=== PATIENT | male | born 1985 | race Caucasian/White ===

== ENCOUNTER 2022-03-29 13:25 | Emergency (ER) | payer OTHER, SELFPAY ==
[2022-03-29 14:07] VITALS: BP 113/70; PULSE 75; RESP 18; TEMP 36.8; O2SAT 99; BMI 31.1
[2022-03-29 16:05] LABS: MANUAL DIFF FLAG NO
[2022-03-29 16:07] LABS: Basophils Absolute Auto 0.1 X10*3/uL (0.0-0.2); Basophils Percent Auto 0.4 % (0-2); Eosinophils Absolute Auto 0.2 X10*3/uL (0.0-0.4); Eosinophils Percent Auto 2.2 % (0-4); Hematocrit 43.9 % (42.0-52.0); Hemoglobin 14.7 g/dl (14.0-18.0); Imm Gran Abs Auto 0.04 X10*3/uL (0.00-0.03); Imm Gran Pct Auto 0.4 % (0.0-0.4); Lymphocytes Absolute Auto 2.9 X10*3/uL (1.2-4.9); Lymphocytes Percent Auto 26.3 % (20-40); Mean Corpuscular HGB Conc 33.5 g/dl (31.0-36.0); Mean Corpuscular Hemoglobin 30.2 pg (27.0-33.0); Mean Corpuscular Volume 90.1 fL (80.0-98.0); Mean Platelet Volume 8.9 fL (9.4-12.4); Monocytes Absolute Auto 0.7 X10*3/uL (0.1-1.2); Monocytes Percent Auto 6.3 % (2-11); Neutrophils Absolute Auto 7.2 x10*3/uL (2.0-8.3); Neutrophils Percent Auto 64.4 % (45-73); Platelet Count 291 X10*3/uL (160-400); Red Blood Count 4.87 X10*6/uL (4.60-5.80); Red Cell Distribution Width 12.5 % (11.0-16.0); White Blood Count 11.2 X10*3/uL (4.8-10.8)
[2022-03-29 16:22] LABS: Alanine Aminotransferase 24 U/L (0-40); Albumin Level 4.4 g/dL (3.5-5.0); Alkaline Phosphatase 80 U/L (39-117); Anion Gap 14 (12-20); Aspartate Amino Transferase 16 U/L (5-37); Bilirubin Total 0.6 mg/dL (0.0-1.0); Blood Urea Nitrogen 15 mg/dL (9-16); Calcium 9.4 mg/dL (8.4-10.2); Carbon Dioxide 25 mmol/L (22-29); Chloride 105 mmol/L (96-108); Creatinine Clr Calc Pharmacy 103.1; Estimated Glomerular Filt Rate > 60; Glucose Random 87 mg/dL (60-115); Potassium 4.4 mmol/L (3.3-5.1); Sodium 140 mmol/L (135-145); Total Protein 7.5 g/dL (6.5-8.0)
[2022-03-29 17:46] VITALS: BP 130/83; PULSE 77; RESP 16; TEMP 36.2; O2SAT 100
== END 2022-03-29 20:45 | disposition left against medical advice (07) ==
PROVIDERS: Emergency Provider Emergency Medicine; PCP Family Medicine
DX: R10.32 Left lower quadrant pain (principal); Z79.899 Other long term (current) drug therapy
CPT/HCPCS: 36415; 80053; 85025; 99283

== ENCOUNTER 2024-03-14 10:57 | Outpatient (AMB) | payer OTHER, SELFPAY ==
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
== END 2024-03-14 11:45 | disposition home or self-care (01) ==
PROVIDERS: PCP Family Medicine; Referring Provider Physical Medicine & Rehabilitation; Visit Provider Neurological Surgery
DX: M47.22 Other spondylosis with radiculopathy, cervical region (principal)
CPT/HCPCS: 99204

== ENCOUNTER → 2024-03-14 10:57 | Outpatient (BNVA) | payer OTHER, SELFPAY | PROVIDERS: PCP Family Medicine; Visit Provider Neurological Surgery ==

== ENCOUNTER 2024-11-26 15:00 | Outpatient (AMB) | payer OTHER, SELFPAY ==
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
--- OUTSIDE RECORDS SUMMARY | 2024-11-26 17:30 | XMS_ITS | Clinical Summary ---
Author Organization [facility] Address [address] [place] [address] Care Team Providers Care Oracle Programmer Analyst Name Role Phone Ed Moran MD Primary Care Provider [phone] Allergies No known active allergies Medications No known medications Active Problems No known active problems Social History Tobacco Use Types Packs/Day Years Used Date Smoking Tobacco: Never Assessed Sex and Gender Information Value Date Recorded Sex Assigned at Not on file Gender Identity Not on file Sexual Orientation Not on file Last Filed Vital Signs Vital Sign Reading Time Taken Comments Blood Pressure 137/86 05/24/2021 10:11 AM EDT Pulse 86 05/24/2021 10:11 AM EDT Temperature 36.4 ??C (97.6 ??F) 05/24/2021 10:11 AM E DT Respiratory Rate - - Oxygen Saturation 98% 05/24/2021 10:11 AM EDT Inhaled Oxygen Concentration - - Weight 102 kg (225 lb) 02/01/2021 1:58 PM EDT Height 177.8 cm (5' 10 ) 02/01/2021 1:58 PM EDT Body Mass Index 32.28 02/01/2021 1:58 PM EDT Plan of Treatment Health Maintenance Due Date Last Done Comments Hepatitis C Virus Screening 1986 HIV Screening 1999 DTaP/Tdap/Td Vaccines (1 - Tdap) 2005 Hepatitis B Vaccines (1 of 3 - 19+ 3-dose series) 2005 Influenza Vaccine 06/05/2024 COVID-19 Vaccine ( - 2023-2 5 season) 2024 HPV Vaccines Aged Out No longer eligi ble based on patient's age to complete this topic Pneumococcal Vaccine: Pediat curt (0-5 Years) and At-Risk Patients (6 to 49 Years) Aged Out No longer eligible b ased on patient's age to complete this topic Care Teams Oracle Programmer Analyst Relationship Specialty Start Date End Date Ed Moran MD [address] [place] [address] PCP - General Family Medicine 01/26/21
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
--- OUTSIDE RECORDS SUMMARY | 2024-11-26 17:31 | XMS_ITS | Clinical Summary ---
[facility] Address [address] [place] [address] Care Team Providers Care Strategic Account Director Name Role Phone Unavailable Primary Care Provider Unavailabl e Social History Tobacco Use Types Packs/Day Years Used Date Smoking Tobacco: Never Smokeless Tobacco: Never Sex and Gender Information Value Date Recorded Sex Assigned at Not on file Gender Identity Not on file Sexual Orientation Not on file Obstetrics History Plan of Treatment Health Maintenance Due Date Last Done Comments DTaP,Tdap,and Td Vaccines (1 - Tdap) 2005 Hepatitis B Vaccines (1 of 3 - 19+ 3-dose series) 2005 Cholesterol Screening (Lipid Panel) 10/07/2022 Depression Screening 10/07/2022 HIV Screening 10/07/2022 Hepatitis C Screening 10/07/2022 Social Influencers of Health Screening 10/07/2022 COVID-19 Vaccine (2023-2 5 season) 2024 Influenza Vaccine (#1) 2024 HIB Vaccines Aged Out No longer eligi ble based on patient's age to complete this topic HPV Vaccines Aged Out No longer eligi ble based on patient's age to complete this topic Hepatitis A Vaccines Aged Out No long er eligible based on patient's age to complete this topic IPV Vaccines Aged Out No longer eligi ble based on patient's age to complete this topic MMR Vaccines Aged Out No longer eligi ble based on patient's age to complete this topic Meningococcal ACWY Vaccine Aged Out N o longer eligible based on patient's age to complete this topic Pneumococcal Vaccine: Pediat rics (0 to 5 Years) and At-Risk Patients (6 to 64 Years) Aged Out No longer eligible b ased on patient's age to complete this topic RSV Immunization Patients Un alexander 20 months Aged Out No longer eligible b ased on patient's age to complete this topic Varicella Vaccines Aged Out No longer eligible based on patient's age to complete this topic
== END 2024-11-26 15:41 | disposition home or self-care (01) ==
PROVIDERS: PCP Family Medicine; Visit Provider Neurological Surgery
DX: M47.22 Other spondylosis with radiculopathy, cervical region (principal)
CPT/HCPCS: 99214

== ENCOUNTER 2024-12-29 08:33 | Outpatient (AMB) | payer OTHER, SELFPAY ==
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
[2024-12-29 08:53] VITALS: BMI 29.3
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
--- OUTSIDE RECORDS SUMMARY | 2024-12-29 08:57 | XMS_ITS | Clinical Summary ---
[facility] Address [address] [place] [address] Care Team Providers Care Agriculture Science Teacher Name Role Phone Unavailable Primary Care Provider Unavailabl e Social History Tobacco Use Types Packs/Day Years Used Date Smoking Tobacco: Never Smokeless Tobacco: Never Sex and Gender Information Value Date Recorded Sex Assigned at Not on file Legal Sex Male 8:38 PM EST Gender Identity Not on file Sexual Orientation [...] patient's age to complete this topic Meningococcal B Vacine Aged Out No lo nger eligible based on patient's age to complete [...]
--- OUTSIDE RECORDS SUMMARY | 2024-12-29 08:57 | XMS_ITS | Clinical Summary ---
Author Organization [facility] Address [address] [place] [address] Care Team Providers Care Business Systems Analyst Name Role Phone Ed Moran MD Primary Care Provider [phone] Allergies No known active allergies Medications No [...] age to complete this topic Care Teams Business Systems Analyst Relationship Specialty Start Date End Date Ed Moran MD [address] [place] [address] PCP - General Family Medicine 01/26/21
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
== END 2024-12-29 10:07 | disposition home or self-care (01) ==
PROVIDERS: Visit Provider Physician Assistant
DX: M47.22 Other spondylosis with radiculopathy, cervical region (principal); M75.41 Impingement syndrome of right shoulder
CPT/HCPCS: 20610; 99203

== ENCOUNTER → 2024-12-29 08:42 | Outpatient (BNV) | payer OTHER, SELFPAY | PROVIDERS: Visit Provider Radiology Diagnostic Radiology | DX: M25.511 Pain in right shoulder (principal) | CPT/HCPCS: 73030 ==

== ENCOUNTER 2024-12-29 12:53 | Outpatient (REF) | payer OTHER, SELFPAY ==
--- NOTE | ~2024-12-29 | XR_ITS ---
EXAMINATION: XR SHOULDER, RIGHT CLINICAL INFORMATION: M25.519 - Pain in unspecified shoulder COMPARISON: None available. TECHNIQUE: AP external rotation, Grashey, scapular Y, and axillary views of the right shoulder. FINDINGS: No acute cortical disruption or malalignment. No lytic or blastic lesions. No metallic or radiopaque foreign body. No subcutaneous emphysema. XR/XR shoulder RT min 2V IMPRESSION: Normal x-ray, right shoulder. Electronically signed by: Gregg Encinas MD 12/30/2024 10:31 AM LUIG[facility] GEE
--- OUTSIDE RECORDS SUMMARY | 2024-12-30 15:40 | XMS_ITS | Clinical Summary ---
Author Organization [facility] Address [address] [place] [address] Care Team Providers Care Field Laboratory Operator Name Role Phone Ed Moran MD Primary Care Provider [phone] Allergies No known active allergies Medications No [...] age to complete this topic Care Teams Field Laboratory Operator Relationship Specialty Start Date End Date Ed Moran MD [address] [place] [address] PCP - General Family Medicine 01/26/21
--- OUTSIDE RECORDS SUMMARY | 2024-12-30 15:40 | XMS_ITS | Clinical Summary ---
Author Organization [facility] Address [address] [place] [address] Care Team Providers Care Telephone Assembler Name Role Phone Unavailable Primary Care Provider [...]
== END 2024-12-29 12:54 | disposition home or self-care (01) ==
LOC: HO.HOSX 12:53
PROVIDERS: Visit Provider Physician Assistant
DX: M25.511 Pain in right shoulder (principal); M50.122 Cervical disc disorder at C5-C6 level with radiculopathy; M47.22 Other spondylosis with radiculopathy, cervical region; M75.41 Impingement syndrome of right shoulder
CPT/HCPCS: 20610; 73030; J1010; J2003

== ENCOUNTER → 2025-01-15 07:27 | Outpatient (BNV) | payer OTHER, SELFPAY | PROVIDERS: PCP Family Medicine; Visit Provider Radiology Diagnostic Radiology | DX: M75.41 Impingement syndrome of right shoulder (principal) | CPT/HCPCS: 73221 ==

== ENCOUNTER 2025-01-15 07:29 | Outpatient (REF) | payer OTHER, SELFPAY ==
--- NOTE | ~2025-01-15 | MR_ITS ---
CLINICAL HISTORY: M75.41 - Impingement syndrome of right shoulder MR right shoulder without gadolinium Comparison: None Findings: No acute fractures. No pathologic bone lesions. There are moderate degenerative changes of the acromioclavicular joint. There is bone marrow edema adjacent to the joint. Type II acromion without downsloping. No joint effusion. Bony productive changes related to the inferior AC joint impinge upon the musculotendinous junction of the supraspinatus tendon. There is no evidence of rotator cuff tear. The long head of biceps is intact. No tears of the glenoid labrum. IMPRESSION: 1. Moderate degenerative changes of the acromioclavicular joint with bone marrow edema adjacent to the joint. Inferiorly directed bony osteophytes impinge upon the supraspinatus tendon. No evidence of rotator cuff degeneration or tear. This document has been electronically signed by: Alphonso Jennings MD on 01/16/2025 09:24:23
--- OUTSIDE RECORDS SUMMARY | 2025-01-15 07:32 | XMS_ITS | Clinical Summary ---
Author Organization [facility] Address [address] [place] [address] Care Team Providers Care Dinkey Dispatcher Name Role Phone Unavailable Primary Care Provider [...]
--- OUTSIDE RECORDS SUMMARY | 2025-01-15 07:33 | XMS_ITS | Clinical Summary ---
Author Organization [facility] Address [address] [place] [address] Care Team Providers Care Manager Sourcing Name Role Phone Ed Moran MD Primary Care Provider [phone] Allergies No known active allergies Medications No [...] age to complete this topic Care Teams Manager Sourcing Relationship Specialty Start Date End Date Ed Moran MD [address] [place] [address] PCP - General Family Medicine 01/26/21
== END 2025-01-15 07:30 | disposition home or self-care (01) ==
LOC: HO.MRI 07:29
PROVIDERS: PCP Family Medicine; Visit Provider Physician Assistant
DX: M75.41 Impingement syndrome of right shoulder (principal)
CPT/HCPCS: 73221

== ENCOUNTER 2025-02-03 09:33 | Outpatient (AMB) | payer OTHER, SELFPAY ==
--- NOTE | 2025-02-03 09:33 | MHC.OFFVIS ---
Vital Signs 02/03/25 09:35 Height 5 ft 10 in Weight 204 lb BMI 29.3 Handedness Right Intake Visit Reasons: Tele - right shoulder MRI review Intake Note: Jose Juan is a 39 year old right hand dominant male who presents today via telephone for a MRI review of his right shoulder. Patient reports he is feeling worse since the last time he saw us. IMPRESSION: 1. Moderate degenerative changes of the acromioclavicular joint with bone marrow edema adjacent to the joint. Inferiorly directed bony osteophytes impinge upon the supraspinatus tendon. No evidence of rotator cuff degeneration or tear. Allergies No Known Allergies [No Known Allergies*] Allergy (Verified 02/03/25 09:35) HPI HPI Tele - right shoulder MRI review: Details: Mr. Ramirez is a 39-year-old male presenting via telehealth appointment for right shoulder MRI review. Patient is only able to participate in video call messaging. Patient reports that the cortisone injection that was administered at the last visit gave him a few days of relief but then his pain came back. He reported to the medical numerical control operator that his pain is feeling worse than when he was last seen. He is tentatively scheduled for C-spine surgery with Dr. Emerson on 03/18/2025. 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 Review of Systems Const All systems reviewed & are unremarkable except as noted in HPI and below Physical Exam Vital Signs: BMI result Body Mass Index 29.3 Extrem Other: Deferred due to telehealth Telehealth Telehealth Telehealth Platform: Telephone Location of provider rendering services: practice address Location of patient: address on file Patient Identification confirmed using: Name, : Yes Telehealth method: voice only Patient verbally consented to treatment: Yes Patient verbally consented to billing insurance company: Yes Patient informed of any privacy concerns related to visit: Yes Minutes spent on Phone/Video with Pt.: 10 Assessment & Plan Assessment & Plan (1) Cervical radiculopathy due to degenerative joint disease of spine: Code(s): M47.22 - Other spondylosis with radiculopathy, cervical region Category: Medical (2) Impingement syndrome of right shoulder: Code(s): M75.41 - Impingement syndrome of right shoulder Category: Medical Plan I discussed the MRI findings with Mr. Ramirez which include moderate degenerative changes of the AC joint with bone marrow edema adjacent to the joint. Inferiorly directed bony osteophytes impinge upon the supraspinatus tendon there is no evidence of rotator cuff degeneration or tear. The last cortisone injection only alleviated some of the pain for few days and then returned. At this time the patient does have impingement syndrome however, at this time the cervical radiculopathy seems to be the more concerning issue. He will follow-up with Dr. Emerson for further management. Follow up with Orthopedics as p.r.n., sooner if needed. Coding Level of Care Code Tele Est Pt Level 3 (58908) Diagnoses Cervical radiculopathy due to degenerative joint disease of spine M47.22 Impingement syndrome of right shoulder M75.41
[2025-02-03 09:35] VITALS: BMI 29.3
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
--- OUTSIDE RECORDS SUMMARY | 2025-02-03 10:49 | XMS_ITS | Clinical Summary ---
Author Organization Formerly [facility] Address [address] [place] [address] Care Team Providers Care Court Assistant Name Role Phone Ed Moran MD Primary Care Provider Allergies No known active allergies Medications No [...] age to complete this topic Care Teams Court Assistant Relationship Specialty Start Date End Date Ed Moran MD [address] [place] [address] PCP - General Family Medicine 01/26/21
--- OUTSIDE RECORDS SUMMARY | 2025-02-03 10:49 | XMS_ITS | Clinical Summary ---
Author Organization [facility] Address [address] [place] [address] Care Team Providers Care Stage Hand Name Role Phone Unavailable Primary Care Provider [...]
== END 2025-02-03 09:39 | disposition home or self-care (01) ==
LOC: HO.HOS 09:33
PROVIDERS: PCP Family Medicine; Visit Provider Physician Assistant
DX: M47.22 Other spondylosis with radiculopathy, cervical region (principal); M75.41 Impingement syndrome of right shoulder
CPT/HCPCS: 98012

== ENCOUNTER 2025-04-08 11:16 | Outpatient (AMB) | payer OTHER, SELFPAY ==
--- NOTE | 2025-04-08 11:17 | A.SPINEOV_ITS ---
Intake Visit Reasons: Surgical ?'s prior to r/s Intake Note: Mr. Ramirez is here today with surgical ?'s prior to r/s surgery. Procurement Director Required: No Allergies No Known Allergies [No Known Allergies*] Allergy (Verified 02/03/25 09:35) Assessment & Plan Assessment & Plan (1) Cervical radiculopathy due to degenerative joint disease of spine: Code(s): M47.22 - Other spondylosis with radiculopathy, cervical region Category: Medical Plan Today I saw for follow-up Jose Juan Ramirez. He was scheduled to undergo total disc arthropathy C5-6 in March but due to the passing of his mother this is postpone. He also saw the orthopedic surgeon in the meantime we thought that the symptoms were most likely not related to his right shoulder. He comes in with a few additional questions that were answered satisfactorily. He is planning on ever the surgery in September. He will call my office 6 weeks before the scheduled. I spent 25 minutes in his consult answering questions. Jordi Emerson MD, PhD Spine Fellowship Trained Neurosurgeon Director, [facility] Coding Level of Care Code Est Pt Level 3 (84417) Diagnoses Cervical radiculopathy due to degenerative joint disease of spine M47.22
--- OUTSIDE RECORDS SUMMARY | 2025-04-08 12:13 | XMS_ITS | Data Portability ---
Author Organization [facility], [facility] Address [address] [place] [address] Care Team Providers Care Batch Analyst Name Role Phone HILDA JAY Oreman ELYSE BRIGGS Picking Belt Operator SUDHA LEIVA Primary Care Provider [phone] JEFFREY PERKINS Pacs Administrator [phone] Assessment Encounter Date Assessment Date Assessment LastModified by Organization Details LastModified Time 03/04/2025 03/04/2025 Assessment: R RCRPS Improved ease of mobility noted initially after manual techniques performed. Encouraged patient to include gentle motion within comfortable limits to facilitate improved duration of mobility improvement. Schneider deficits/impairmen ts: shoulder AROM, PROM, strength Functional limitations: pain [...] Treatment to include the following as indicated: 99401 Therapeutic Exercise, 36468 Neuromuscular Re-education, 11647 Gait Training, 58580 Manual Therapy, 78296 Therapeutic Activity, and 82010 Self-care and ADL Training Next visit: continue with SUSANNE Not available 03/04/2025 11:29:55 03/11/2025 03/11/2025 Assessment: R RCRPS Continued encouragement to include gentle ROM within comfortable limits after manual techniques today. Improved ease of mobility and somewhat decreased pain following performance. Schneider deficits/impairmen ts: shoulder AROM, PROM, strength Functional limitations: pain [...] Treatment to include the following as indicated: 45113 Therapeutic Exercise, 73037 Neuromuscular Re-education, 05995 Gait Training, 89009 Manual Therapy, 78345 Therapeutic Activity, and 35825 Self-care and ADL Training Next visit: continue with SUSANNE [email or web address] Not available 03/11/2025 11:05:54 03/25/2025 03/25/2025 Assessment: R RCRPS Improved ease of mobility following manual techniques. Emphasized mobilization of posterior scapulothoracic musculature and joint mobilization at T4-T7 levels. Schneider deficits/impairmen ts: shoulder AROM, PROM, strength Functional limitations: pain [...] Treatment to include the following as indicated: 30901 Therapeutic Exercise, 62035 Neuromuscular Re-education, 53785 Gait Training, 70950 Manual Therapy, 25848 Therapeutic Activity, and 74504 Self-care and ADL Training Next visit: continue with SUSANNE [email or web address] Not available 03/25/2025 12:39:10 Plan of Treatment Reminders Order Date Submit Date Provider Last Modified By Organization Details Last Modified Time Details Appointments Follow Up, 2024 03:30P M EHSAN LARES DPT Not available Not available Not available Follow Up, 2024 11:30A M EHSAN LARES DPT Not available Not available Not available LAB Follow-Up 2025 03:15P M [facility] Lab Not available Not available Not available Wellness Visit 30 2025 09:15A M Sudha Leiva MD Not available Not available Not available Lab None recorded. Referral neurologi st referral - pt has had intermitt ent paresthes ias on his face, left side, was dx as migraine, having intermitt ent sx, mild, but no further YOON, never had nausea, r/o MS 2024 025 [email or web address] Lamont Rowe MD, [address] , [place], [address], 03/09/2025 12:43:37 Procedures None recorded. Surgeries None recorded. Imaging None recorded. Medication Orders tadalafil 20 mg tablet 2024 025 ASIF G[employer], [address] [place] [address], [address], 04/06/2025 09:39:10 Patient TargetsNo targets recorded. Patient Instructions Encounter Date Encounter Id Patient Instructions Last Modified By Organization Details Last Modified Time 03/04/2025 [id number] Patient instruct ed to inform attending physical therapist of any apprehension, pain, discomfort, or change in symptoms throughout the course of treatment. Patient verbalized understanding and agreed to comply. Not available 03/04/2025 10:36:17 03/11/2025 [id number] Patient instruct ed to inform attending physical therapist of any apprehension, pain, discomfort, or change in symptoms throughout the course of treatment. Patient verbalized understanding and agreed to comply. [email or web address] Not available 03/11/2025 10:34:17 03/25/2025 [id number] Patient instruct ed to inform attending physical therapist of any apprehension, pain, discomfort, or change in symptoms throughout the course of treatment. Patient verbalized understanding and agreed to comply. [email or web address] Not available 03/25/2025 11:27:58 04/06/2025 [id number] sciatica: care instructions [email or web address] Not available 04/06/2025 09:57:12 take 1000 iu vitamin d daily, or average 5,000-10,000 once a week [email or web address] Not available 04/06/2025 09:42:30 After a discussi on of treatment options, which included consideration of best practices and patient preferences, the following treatment plan and objectives were adopted: as above. [email or web address] Not available 04/06/2025 09:42:33 Reason for Referral Neurologist Referral for Fac ial paresthesia pt has had intermittent paresthesias on his face, left side, was dx as migraine, having intermittent sx, mild, but no further YOON, never had nausea, r/o MS Referring Physician: Sudha Leiva, Family Medicine, Encounter Date: 03/06/2025 Results Created Date Observation Date Name Description Value Unit Range Abnormal Flag Note LastModifiedBy Organization Detail LastModifiedTime 03/02/2003/02/2025 BASIC METAB OLIC PANEL glucose 83 mg/dL 70-100 Not Available [address], [address], 03/02/2025 14:39:40 03/02/20 25 03/02/2025 BASIC METAB OLIC PANEL BUN 26 mg/dL 7-18 high Not Available [address], [address], 03/02/2025 14:39:40 03/02/20 25 03/02/2025 BASIC METAB OLIC PANEL creatinine 0.8 mg/dL 0.8-1. 3 Not Available [address], [address], 03/02/2025 14:39:40 03/02/20 25 03/02/2025 BASIC METAB OLIC PANEL B/C 32.5 ratio Not Available [address], [address], 03/02/2025 14:39:40 03/02/20 25 03/02/2025 BASIC METAB OLIC PANEL GFR >=60ML /MIN mL/mi n normal >=60m L/min - Valerie l or midly reduc ed <60mL /min- Decre ased kidne y funct ion <15mL /min - Kidne y failu re [facility] calcu lates estim ated Glome rular Filtr ation Rate (eGFR ) using the Chron ic Kidne y Disea se Epide miolo gy Colla borat ion (CKD- EPI) Equat ion (Vitor r et. al 2020) as recom vera d by the Natio nal Kidne y Found ation . eGFR is based on age, serum creat inine , and sex. CKD-E PI does not calcu late eGFR by race, does not apply to child gregory (age <18 years ), and shoul d not be used in pregn bernard. Not Available [address], [address], 03/02/2025 14:39:40 03/02/20 25 03/02/2025 BASIC METAB OLIC PANEL sodium 142 mmol/ L 136-14 5 Not Available [address], [address], 03/02/2025 14:39:40 03/02/20 25 03/02/2025 BASIC METAB OLIC PANEL potassium 4.8 mmol/ L 3.5-5. 1 Not Available [address], [address], 03/02/2025 14:39:40 03/02/20 25 03/02/2025 BASIC METAB OLIC PANEL chloride 107 mmol/ L 96-107 Not Available [address], [address], 03/02/2025 14:39:40 03/02/20 25 03/02/2025 BASIC METAB OLIC PANEL anion gap 9.9 5.0-15 .0 Not Available [address], [address], 03/02/2025 14:39:40 03/02/20 25 03/02/2025 BASIC METAB OLIC PANEL CO2 25 mmol/ L 21-32 Not Available [address], [address], 03/02/2025 14:39:40 03/02/20 25 03/02/2025 BASIC METAB OLIC PANEL calcium 8.8 mg/dL 8.5-10 .3 Not Available [address], [address], 03/02/2025 14:39:40 03/02/20 25 03/02/2025 LIPID PANEL cholesterol 149 mg/dL <200 mg/dl Staci able 200-2 39 mg/dl Borde rline High >240 mg/dl High Not Available [address], [address], 03/02/2025 14:39:42 03/02/20 25 03/02/2025 LIPID PANEL triglyceride s 37 mg/dL <150 mg/dL Valerie l 150-1 99 mg/dL Borde rline High 200-4 99 mg/dL High >500 mg/dL Very High Not Available [address], [address], 03/02/2025 14:39:42 03/02/20 25 03/02/2025 LIPID PANEL direct HDL 73 mg/dL <40 mg/dl - Major Risk for CHD >60 mg/dl - Negat janneth Risk for CHD Not Available [address], [address], 03/02/2025 14:39:42 03/02/20 25 03/02/2025 URIC ACID uric acid 6.1 mg/dL 3.5-7. 2 Not Available [address], [address], 03/02/2025 14:39:43 03/02/2003/02/2025 DIREC T LDL direct LDL 61 mg/dL RISK CATEG ORY LDL GOAL _ CHD or CHD Risk Equiv alent s <100 mg/dl (10-y ear risk >20%) 2+ Risk Facto rs <130 mg/dl (10-y ear risk <= 20%) 0-1 Risk Facto r? <160 mg/dl ? Almos t all peopl e with 0-1 risk facto r have a 10 year risk <10%, thus 10 year risk asses ment in peopl e with 0-1 risk facto r is not neces carmen. Not Available [address], [address], 03/02/2025 14:39:45 03/02/20 25 03/02/2025 HGB A1C hemoglobin A1C 5.4 % 4.8-6. 0 Goal: <7% in Patie nts with Diabe storm An A1c betwe en 5.7-6 .4% is ident ified as pre-d iabet es and sugge sts risk for progr essio n to diabe storm Two a1c value s of 6.5% or highe r is consi stent with a diagn osis of diabe storm but may need furth er confi rmati on Not Available [address], [address], 03/02/2025 16:08:25 03/02/20 25 03/02/2025 HGB A1C estimated average glucose 108.3 mg/dL Not Available [address], [address], 03/02/2025 16:08:25 02/20/20 25 02/17/2025 CT, head, w/o contr ast No observ ation record ed. [address] In[address] [place], [address], 02/19/2025 11:03:36 03/23/20 25 03/18/2025 MRI brain (MS) with and witho ut contr ast MRI BRAIN (MS) WITH AND WITHOU T CONTRA ST Referr ing clinic sharonda's provid ed indica tion for this examin ation in Epic: Outsid e Radiol ogy Order; facial parest hesia TECHNI QUE: MRI BRAIN (MS) WITH AND WITHOU T CONTRA ST COMPAR MANNY: None availa ble. FINDIN GS: Brain Parenc hyma: No eviden ce of acute infarc t, mass lesion , or hemorr darrion. No abnorm al parenc hymal enhanc ement. Ventri cular System and Extra- Axial Spaces : No eviden ce of midlin e shift or hydroc ephalu s. Extrac ranial Struct ures: Arteri al flow voids in the skull base are presen t. Orbits are unrema rkable . Trace scatte red mucosa l thicke meagan is seen throug hout the parana martin sinuse s. Mucus retent ion cyst is seen in the left spheno id sinus. The mastoi ds are clear. IMPRES ZARA: No eviden ce of acute infarc tion, hemorr darrion, intrac ranial mass, or hydroc ephalu s. Electr onical ly Signed by: Candice Brady on 025 10:29 AM Interp reted by: Candice Brady MD Signed by: Candice Brady MD 5 Final result Left facial parest hesias x 3 weeks. MRI MS w/ and w/o. Brain/ brains tem, r/o MS JENNIF ER DEPIER O JENNIF ER DEPIER O JENNIF ER DEPIER O [facility] [address] [place] [address], [address], 03/24/2025 13:49:52 03/23/20 25 03/18/2025 MRI, head, w/wo contr ast No observ ation record ed. [address], [address], 03/24/2025 13:49:52 Result Notes None recorded. 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 Procedures Surgical History Date Name Laterality Status Provider Name and Address Organization Details Recorded Time 5 14432: Therapeutic Exercise completed EHSAN LARES DPT [address] [place] [address], [phone], [facility] 03/25/2025 12:38:06 5 [address]: Manual Therapy completed EHSAN LARES DPT [address] [place] [address], [address], [facility] 03/25/2025 12:38:02 5 Treatment and Advice completed EHSAN LARES DPT [address] [place] [address], [address], [facility] 03/25/2025 12:37:51 5 74107: Manual Therapy completed EHSAN LARES DPT [address] [place] [address], [address], [facility] 03/11/2025 10:34:17 5 Treatment and Advice completed EHSAN LARES DPT [address] [place] [address], [address], [facility] 03/11/2025 10:34:17 5 [address]2658: Manual Therapy completed EHSAN LARES DPT [address] [place] [address], [address], [facility] 03/04/2025 11:28:19 04/30/202 5 Treatment and Advice completed EHSAN ARNAUD, DPT [address] [place], [address], [facility] 03/04/2025 11:28:40 5 95130: Manual Therapy completed EHSANHO LARES, DPT [address] [place], [address], [facility] 02/25/2025 15:28:33 Treatment and Advice completed EHSAN ARNAUD, DPT [address] [place], [address], [facility] 02/25/2025 15:31:03 5 17605: Therapeutic Exercise completed EHSAN LARES, DPT [address] [place], [address], [facility] 02/12/2025 16:12:15 Treatment and Advice completed EHSANMARTA LARES, DPT [address] [place], [address], [facility] 02/12/2025 16:10:43 5 43529: Therapeutic Exercise completed EHSAN LARES, DPT [address] [place], [address], [facility] 02/05/2025 16:17:20 15728: Manual Therapy completed EHSAN LARES, DPT [address] [place], [address], [facility] 02/05/2025 16:17:34 Treatment and Advice completed EHSAN ARNAUD, DPT [address] [place], [address], [facility] 02/05/2025 16:17:17 5 51840: Therapeutic Exercise completed EHSAN ARNAUD, DPT [address] [place], [address], [facility] 01/13/2025 16:37:01 Treatment and Advice completed EHSAN ARNAUD, DPT [address] [place], [address], [facility] 01/13/2025 16:59:57 12567: Therapeutic Exercise completed EHSAN LARES DPT [address] [place], [address], [facility] 01/06/2025 17:18:19 Treatment and Advice completed EHSAN LARES DPT [address] [place], [address], [facility] 01/06/2025 17:33:44 5 33969: Therapeutic Exercise completed VICENTE DONALD PT, DPT [address] [place], [address], [facility] 12/19/2024 17:25:37 52080: Manual Therapy completed VICENTE DONALD PT, DPT [address] [place], [address], [facility] 12/19/2024 17:00:39 Treatment and Advice completed VICENTE DONALD PT, DPT [address] [place], [address], [facility] 12/19/2024 17:26:13 08790: Therapeutic Exercise completed VICENTE DONALD PT, DPT [address] [place], [address], [facility] 12/12/2024 17:04:40 5 63012: Manual Therapy completed VICENTE DONALD PT, DPT [address] [place], [address], [facility] 12/12/2024 16:35:17 Treatment and Advice completed VICENTE DONALD PT, DPT [address] [place], [address], [facility] 12/12/2024 17:02:55 5 17319: Therapeutic Exercise completed VICENTE DONALD PT, DPT [address] [place], [address], [facility] 12/01/2024 10:31:44 5 20848: Manual Therapy completed VICENTE DONALD, PT, DPT [address] [place], [address], [facility] 12/01/2024 10:32:02 5 Treatment and Advice completed VICENTE DONALD, PT, DPT [address] [place], [address], [facility] 12/01/2024 10:31:26 5 02656: Therapeutic Exercise completed VICENTE DONALD, PT, DPT [address] [place], [address], [facility] 11/25/2024 12:59:03 5 46590: Manual Therapy completed VICENTE DONALD, PT, DPT [address] [place], [address], [facility] 11/25/2024 12:59:25 5 Treatment and Advice completed VICENTE DONALD PT, DPT [address] [place], [address], [facility] 11/24/2024 09:31:38 5 Smoking Cessation Counselling completed VICENTE DONALD PT, DPT [address] [place], [address], [facility] 11/14/2024 09:51:36 5 Physical Activity Counselling completed VICENTE DONALD PT, DPT [address] [place], [address], [facility] 11/14/2024 09:51:36 5 [address]225: PT Eval Low Complexity completed VICENTE DONALD, PT, DPT [address] [place], [address], [facility] 11/14/2024 09:51:36 5 Treatment and Advice completed VICENTE DONALD, PT, DPT [address] [place], [address], [facility] 11/17/2024 14:54:20 Imaging Results None recorded. Procedure Notes None [...] oral route as directed for 30 days. 2024 active Not Available Not Available Not Avai lable amoxicill in 500 mg capsule Take 2 [...] Not Available gabapenti n 300 mg capsule Take 1 capsule 3 times a day by oral route. 2024 active Not Available Not Available Not Avai lable sertralin e 25 mg tablet TK 1 [...] mg tablet TK 1 T PO NEEDED 2024 active Not Available Not Available Not Avai lable Fluvirin 8518-0210 45 mcg (15 mcg x 3)/0.5 mL [...] mass index (BMI) Body weight Heart rate Body temperature Oxygen saturation Oxygen saturation in Arterial blood by Pulse oximetry Systolic blood pressure Diastolic blood pressure Provider Name and Address Organization Details Last Updated DateTime 5 179.07 cm 30 kg/m2 32557.5 8 g 83 /min 98.6 [degF] 98 % 98 % 116 mm[Hg] 84 mm[Hg] LIUDMILA Rapp [facility] 5 11:32:42 Date Recorded Body height Body mass index (BMI) Body weight Heart rate Oxygen saturation Oxygen saturation in Arterial blood by Pulse oximetry Systolic blood pressure Diastolic blood pressure Provider Name and Address Organization Details Last Updated DateTime 5 179.71 cm 31.1 kg/m2 318917. 07 g 79 /min 99 % 99 % 114 mm[Hg] 76 mm[Hg] Carolyn Rodriguez MA [facility] 09:24:10 Social History Question Answer Notes LastModified by Organizat ion Details LastModified Time Tobacco Smoking Status Never Smoker GLEN Escobar, [facility] 02/26/2014 17:11:09 Do You Have An Advance Directive? No Information not available 03/03/2014 Which Illicit Or Recreational Drugs Have You Used? Edibles For Sleep Information not available 04/06/2025 Patient Has Health Care Proxy Signed And In Chart No Declined Forms 15 Information not available 03/03/2014 How Many Children Do You Have? 4 1 Live With Them (all His 's) Information not available 09/02/2015 What Is Your Relationship Status? Information not available 02/28/2022 How Much Tobacco Do You Smoke? No Information not available 12/16/2015 Sex: Male Functional Status Question Answer Note LastModified by Organizat ion Details LastModified Time Do you use any illicit or recreational drugs? Yes Information not available 04/06/2025 Do you or have you ever used any other forms of tobacco or nicotine? No Information not available 03/01/2023 Are you currently employed? Yes Information not available 02/28/2022 What is your occupation? [employer] Information not available 03/03/2014 Do you or have you ever used e-cigarettes or vape? Never used electronic cigarettes Information not available 09/23/2019 Mental Status None recorded. Family History Relationship Description Onset Age of this Age Resolved Age Notes LastModified by Organization Details LastModified Time Paternal Grandfather Myocardial infarction [email or web address] Not available 02/28 10:45:40 Mother Bipolar disorder [email or web address] Not available 2021 10:46:20 Mother Mixed anxiety and depressive disorder [email or web address] Not available 2021 10:46:53 Mother Osteoarthrit is [email or web address] Not available 2022 09:54:24 Mother Chronic obstructive pulmonary disease 73 [email or web address] Not available 2024 09:35:57 Unspecified Relation Mixed anxiety and depressive disorder niece [email or web address] Not available 2021 10:46:53 Notes:PGF- lung cancer . Mother with brain tumor Medical History Condition Response Anxiety Y Depression Y Chronic Back Pain Y Immunizations Vaccine Type Date Status Note Provider Nam e and Address Organization Details Recorded Time Influenza, split virus, trivalent, PF 4 completed Not Available [facility] 11/22/2019 02:19:22 Tdap 6 completed Not Available [facility] 11/22/2019 02:31:44 Influenza, split virus, quadrivalent, PF 7 completed Not Available [facility] 11/22/2019 02:25:40 influenza, unspecified formulation 5 completed Not Available [facility] 12/25/2023 09:43:24 influenza, unspecified formulation 6 completed Not Available [facility] 12/25/2023 09:43:24 Influenza, split virus, quadrivalent, PF 9 completed Not Available [facility] 11/22/2019 02:23:34 Influenza, split virus, quadrivalent, PF 9 completed Not Available [facility] 11/22/2019 02:38:00 COVID-19, mRNA, LNP-S, PF, 100 mcg/0.5mL dose or 50 mcg/0.25mL dose 1 completed Not Available [facility] 12/25/2023 09:43:23 COVID-19, mRNA, LNP-S, PF, 100 mcg/0.5mL dose or 50 mcg/0.25mL dose 1 completed Not Available [facility] 12/25/2023 09:43:23 Influenza, split virus, trivalent, PF 4 completed Lindsey Pleitez MA [facility] 07/15/2024 10:29:12 Influenza, split virus, quadrivalent, preservative 1 completed Not Available [facility] 12/25/2023 09:43:23 COVID-19, mRNA, LNP-S, PF, 100 mcg/0.5mL dose or 50 mcg/0.25mL dose 1 completed Not Available [facility] 12/25/2023 09:43:24 Influenza, split virus, quadrivalent, preservative 2 completed Not Available [facility] 12/25/2023 09:43:23 influenza, unspecified formulation 3 completed Not Available [facility] 12/25/2023 09:43:24 HPV, unspecified formulation 5 [facility] 08:32:06 HPV, unspecified formulation 5 [facility]/08/[facility] 08:02:11 Past Encounters Encounter ID Performer Location Encounter Start Date Encounter Closed Date Diagnosis/Indication Diagnosis SNOMED-CT Code Diagnosis ICD10 Code Diagnosis Note [id number] Brenton Stack MD , [facility], [address] [place] [address] 02/26/2014 16:32:49 02/27/2014 09:53:24 Acute pharyngitis 312558914 [id number] Brenton Stack MD , [facility], [address] [place] [address] 03/03/2014 10:15:46 03/03/2014 11:08:49 Adult health examination 255090360 see Risk Assessment and Lifestyle Change Counseling section above Anxiety 73085132 Otitis media 74718863 Impotence 991233955 [id number] Brenton Stack MD , [facility], [address] [place] [address] 07/02/2014 15:20:05 07/02/2014 16:13:43 Thrombosed external hemorrhoids 35234050 [id number] Brenton Stack MD , [facility], [address] [place] [address] 09/16/2014 15:10:36 09/16/2014 16:22:41 Influenza vaccine needed 6993530364 106 Heel pain 1322139 [id number] Brenton Stack MD , [facility], [address] [place] [address] 11/20/2014 14:54:38 11/20/2014 15:53:34 Heel pain 5622252 [id number] Hilda Jay DPM Podiatry, [facility] [address] [place] [address] 12/17/2014 15:15:12 12/17/2014 16:03:55 Plantar fasciitis 549971022 Congenital valgus deformity of foot 50979367 [id number] Hilda Jay DPM Podiatry, [place] [address] [place] [address] 12/22/2014 10:07:42 12/22/2014 10:47:17 Plantar fasciitis 113911646 Congenital valgus deformity of foot 67169034 [id number] Hilda Jay DPM Podiatry, [facility] [address] [place] [address] 01/26/2015 14:05:56 01/26/2015 14:28:00 Plantar fasciitis 776506847 Congenital valgus deformity of foot 60029720 [id number] Brenton Stack MD , [facility], [address] [place] [address] 04/05/2015 09:48:54 04/05/2015 10:33:31 Impotence 410872973 Adult heal th examination 175122077 see Risk Assessment and Lifestyle Change Counseling section above Obesity 901940197 Anxiety 24617222 [id number] Brenton Stack MD , [facility], [address] [place] [address] 09/02/2015 15:54:56 09/02/2015 17:03:30 Adult health examination 844324115 Z00.00 see Risk Assessment and Lifestyle Change Counseling section above Impotence 015494217 N52. 9 Anxiety 24189338 F41.9 [id number] Brenton Stack MD , [facility], [address] [place] [address] 12/16/2015 15:12:36 12/16/2015 16:45:43 Administration of diphtheria, pertussis, and tetanus vaccine 528093662 Z23 Thrombosed external hemorrhoids 70250531 K64.5 [id number] Brenton Stack MD , [facility], [address] [place] [address] 09/24/2017 09:08:45 09/24/2017 09:36:57 Active or passive immunization 578457843 Z23 Anxiety 79353307 F41.9 Impotence 124615197 N52. 9 [id number] Ed Moran MD , [facility], [address] [place] [address] 12/17/2018 08:29:54 12/17/2018 09:19:43 Impotence 364131850 N52.9 Ongoing erectile dysfunctio n with difficulty sustaining erection. Improved with Cialis. Refilled. Generalize d anxiety disorder 06194487 F41.1 Long history of TRACEE. Gradually titrating down the dose. Has been on Sertraline for 7-8 years. Initially was at 300mg, but slowly weaning down due to sexual side effects. Now at 50mg daily (for the last 2-3 months). In the middle of moving (moving from [place] to [place]). Would like to continue at this dose for a while. Obesity 275673829 E66.9 Trying lifestyle modificati on with low carbohydra te diet. Will check Lipids and Glucose. Active or passive immunization 910743262 Z23 [id number] Brenton Stack MD , [facility], [address] [place] [address] 09/23/2019 11:14:12 09/23/2019 12:31:26 Adult health examination 324438364 Z00.00 see Risk Assessment and Lifestyle Change Counseling section above Counseling 009643773 Z71 .9 Depression screening 171 088208 Z13.89 depression screening tool administer ed, entered into emr, scored and discussed, time greater than 7.5 minutes Active or passive immunization 249609572 Z23 Anxiety 93597873 F41.9 Impotence 735567049 N52. 9 [id number] Ed Moran MD , [facility], [address] [place] [address] 02/23/2021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 no YOON and the numbness comes and goeswould like to r/o MS, check MRI and make referral to neuro Chronic neck pain 940649 1742 107 M54.2 deferring surgerywan ts to be able to have more time free and on sabatical next spring semesterre ferred to P[facility] for considerat ion trigger point injections for posterior shoulder for susprected reactive myopathy [id number] EHSAN LARES DPT Physical Therapy, [facility] [address] [place] [address] 03/11/2025 10:30:30 03/11/2025 11:21:21 Cervical radiculopathy 31433173 M54.12 Neck pain 13254674 M54.2 Pain of ri ght shoulder joint 4125316870 [id number] M25.511 [id number] EHSAN LARES DPT Physical Therapy, [facility] [address] [place] [address] 03/25/2025 11:56:11 03/25/2025 12:46:57 Cervical radiculopathy 36179793 M54.12 Neck pain 69829564 M54.2 Pain of ri ght shoulder joint 7113761541 [id number] M25.511 [id number] Sudha Leiva MD , [facility], [address]ICE [address] [place] [address] 04/06/2025 09:16:58 04/06/2025 09:55:57 Adult health examination 775939577 Z00.00 Depression screening 171 931685 Z13.31 depression screening tool administer ed Screening for alcohol abuse 256367293 Z13.39 Alcohol use screening tool administer ed Primary er ectile dysfunction 760161297 N52.9 tadalafil with effect, mild YOON SElikes sent to [facility] for cost Chronic neck pain 363621 9976 107 M54.2 deferring surgery for disc replacemen tto be sure to have time to heal, navigating work scheduleta kes gabapentin and cyclobenza letty for pain mgmt Cervical radiculopathy 66948039 M54.12 see above Gout 28887709 M10.9 hx gout tx colchicine has not had flares for several yearsno flares in recent yearsuric acid 6.1not on any ppx Obesity 159911069 E66.9 normal screening lipid and i6jetzaklr ed diet for healthregu lar exercise Pain of oulder region 80551662 M25.519 ongoing issueseein g ortho next monthdoing PT Neck pain 72213704 M54.2 see notes above Bilateral sciatica 71859 44855 8276936 M54.31 M54.32 this has been more prevalent latelywill work w PTnotify us if updated referral needed Normal grief reaction 27 8601729 R45.89 mother last weeknoting sx on HLD7ehfod this is temporary with rawness of griefhas good supports and more time this summer for himselff/u if depressive sx persist and interfere with life Health Concerns Section Related Observation LastModified by Organization Detai ls LastModified Time None Recorded Concern Status LastModified by Organization Details LastModified Time None Recorded Advance Directives Directive N: Payers Encounter Date Sequence Insurance Name Policy Number Policy Fabian Covered Member ID Fabian Member ID Guarantor Name 03/04/2025 1 [facility] [place] [id number] 1 Jose Juan Ramirez [id number] Jose Juan Ramirez 03/06/2025 1 [facility] [place] [id number] 1 Jose Juan Ramirez [id number] Jose Juan Ramirez 03/11/2025 1 [facility] [place] [id number] 1 Jose Juan Ramirez [id number] Jose Juan Ramirez 03/25/2025 1 [facility] [id number] 1 Jose Juan Ramirez [id number] Jose Juan Ramirez 04/06/2025 1 [facility] [id number] 1 Jose Juan Ramirez [id number] Jose Juan Ramirez Notes Date Note Type Note Provider Name and Address Organization Details Recorded Time 03/04/2025 text/html PT Initial Eval*Reported bypatient.Prior Studies:MRI (annular bulge at C5/6 with herniation into neural foramen)PT Daily Progress NoteReported bypatient.Notes:Jose Juan reports that he noted some improved mobility for a day or two after the mobilizations last time. He Reports he has been mostly resting the shoulder on his own. He finished the steroid about 3 weeks ago, and has had some pain return, but it is still better than before the steroid dose pack. Patient Specific Functional Score:50 Percent limitation in carrying [id number] Percent limitation in sitting w/o lumbar [id number] Percent limitation in cooking/bakingPt referred to PT by PCP Dr. Leiva regarding shoulder and neck pain following recent [...] return to PLOF EHSAN LARES DPT [address] [place], [address], [facility] [place] 03/04/2025 11:30:07 03/06/2025 text/html [facility] ED F/Yhad unilateral paresthesias in his facein the ED they felt it was an stress induced complex migrainehad a little bit of a YOON that came and wenthas never had migraine beforeno nauseano YOON sincestill having some numbness coming in , worse around lips and chin and upper cheek, all on left sidedid a CT scan and blood work denies fatiguedenies visual sxdenies other numbness or weakness other than as related to his UE and neck sxhas tingling in his feet that he thinks from L5 disc bulgingdoes stretching for this routine was supposed to see his surgeon today as a f/u before his surgeryit was planned for this March and he is hoping to now delay until October he is on sabbatical next springbc down time can be anywhere from 3 weeks to 3 monthsin academia has a lot of time off but it isn't in his 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 He has been continuing to do less activity overall, and to focus on the exercises that facilitate immediate relief. Patient Specific Functional Score:50 Percent limitation in carrying [id number] Percent limitation in sitting w/o lumbar [id number] Percent limitation in cooking/bakingPt referred to PT by PCP Dr. Leiva regarding shoulder and neck pain following recent [...] return to PLOF EHSAN LARES DPT [address] [place], [address], [facility] [place] 03/11/2025 11:06:07 03/25/2025 text/html PT Initial Eval*Reported bypatient.Prior Studies:MRI (annular bulge at C5/6 with herniation into neural foramen)PT Daily Progress NoteReported bypatient.Notes:Jose Juan reports that he has been doing the most relieving exercises from his HEP consistently. He is looking for additional exercises focused on stretching/releasing his pec minor. Patient Specific Functional Score:50 Percent limitation in carrying [id number] Percent limitation in sitting w/o lumbar [id number] Percent limitation in cooking/bakingPt referred to PT by PCP Dr. Leiva regarding shoulder and neck pain following recent [...] pain, return to PLOF EHSAN LARES DPT [address] [place] [address], [address], [facility] [place] 03/25/2025 12:39:19 04/06/2025 text/html Risk Assessment and Lifestyle Change Counseling 18-50Reported bypatient.Coronary Artery Disease Risk Assesment:Family History of Coronary Artery Disease; No personal history of diabetes; No history of peripheral vascular disease, AAA, or carotid disease; No personal history of coronary artery disease Breast Cancer Risk Assessment:No family history of breast cancer; No history of breast cancer or dcis Lung Cancer Risk Assessment:Never smoked; No asbestos exposure Cognitive/Behavioral Risk Assessment:Personal history of mental illness;Family history of mental illness Safety Risk Assessment:No evidence of abuse/neglect; Do you feel safe in your current relationship?YES Diet:Counseled about appropriate portion size; Counseled about eating a diet low in trans and saturated fats and high in fiber, fruits and vegetables; Counseled about appropriate calcium intake and good dietary sources of calcium.; Counseled about the importance of maintaining a positive calcium balance and taking 1000 iu Vitamin D daily.; Discussed the value of a Mediterranean diet, and eating more fruits and vegetables Exercise counseling:Discussed the importance of daily physical activity; Discussed the importance of weight bearing exercise Safety:Counseled about protecting skin from the sun and lowering the risk of skin cancer; Counseled about avoiding excessive and unsafe alcohol intake; Counseled about use of helmets for high velocity activiities; Counseled about home safety including use of smoke detectors, CO detectors, keeping home water temperature less than 120; Counseled about use of seat belts health goals:would like to lose weight again this summerdid well last summer with thismostly eating less concerns:-still has issues with neck and shouldermore sciatic pain in the past few weeks, more in his right leg, seems to be bilateral thoughthis improves when he can relax and extend the lower spinewaiting on surgery for his neck -- timing, with work etc, going to have disc replacement this Sundayhe uses gabapentin and cyclobenzaprine for pain mgmthe is working w PT herehe is seeing ortho re shoulder next month 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, works a lothe has more time off in the summer mom last week w COPDthe decline was rapid, she was only 74feels his depressive sx are situational lives with hsbd, paulrelationship is going wellsexually active only with each othersome ED and uses tadalafil, mild YOON only SE tries to eat healthynotes stress eatingtries to eat veg every daynot a lot of fruiteats a lot of protien, maybe too mucheats nutsdoesn't eat legumesnot much grainsdrinks almond milk w calcium, some cheese finding it hard to find time to exercisebetter w summer scheduletries to walk five miles a dayneeds to go back to strength training Sudha Leiva MD [address] [place] [address], [place], [address], [facility] [place] 04/06/2025 09:58:50
== END 2025-04-08 11:26 | disposition home or self-care (01) ==
PROVIDERS: PCP Family Medicine; Visit Provider Neurological Surgery
DX: M47.22 Other spondylosis with radiculopathy, cervical region (principal)
CPT/HCPCS: 99213

== ENCOUNTER → 2025-04-08 11:16 | Outpatient (BNVA) | payer OTHER, SELFPAY | PROVIDERS: PCP Family Medicine; Visit Provider Neurological Surgery ==

== ENCOUNTER 2025-04-30 10:39 | Outpatient (AMB) | payer OTHER, SELFPAY ==
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
[2025-04-30 10:44] VITALS: BMI 29.3
--- OUTSIDE RECORDS SUMMARY | 2025-04-30 12:28 | XMS_ITS | Data Portability ---
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 Jose Juan Ramirez 11/16/2021 1 [facility] [id number] Jose Juan Ramirez [id number] Jose Juan Ramirez Notes Date Note Type Note Provider Name and Address Organization Details Recorded Time 03/11/2025 text/html PT Initial Eval*Reported bypatient.Prior Studies:MRI [...] Specific Functional Score:50 Percent limitation in carrying [id number] Percent limitation in sitting w/o lumbar duqjksa15 Percent limitation in cooking/bakingPt referred to PT by Dr. 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 He is looking for additional exercises focused on stretching/releasing his pec minor. Patient Specific Functional Score:50 Percent limitation in carrying ahawzty35 Percent limitation in sitting w/o lumbar owqcszq09 Percent limitation in cooking/bakingPt referred to PT by Dr. 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 off in the summer mom last week w COPDthe decline was rapid, she was only 74feels his depressive sx are situational lives with hsbd, acostarelationship is going wellsexually active only with each [...] back to strength training Sudha Leiva MD [address] [place] [address], [phone], [facility] 04/06/2025 09:58:50 04/16/2025 text/html PT/OT Initial EvalReported bypatient.Prior Studies:MRI (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 He was unable to keep up with his usual exercises and self management technigues as much as usual. Patient Specific Functional Score:50 Percent limitation in carrying axijzro90 Percent limitation in sitting w/o lumbar ilozsuh59 Percent limitation in cooking/bakingPt referred to PT by Dr. 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 Patient Specific Functional Score:50 Percent limitation in carrying dlggvka64 Percent limitation in sitting w/o lumbar Percent limitation in cooking/bakingPt referred to PT by Dr. Leiva regarding shoulder and neck pain [...] return to PLOF EHSAN LARES DPT [address] [place], [address], [facility] 04/23/2025 13:49:03
== END 2025-04-30 11:40 | disposition home or self-care (01) ==
LOC: HO.HOS 10:39
PROVIDERS: PCP Family Medicine; Visit Provider Orthopaedic Surgery
DX: M75.41 Impingement syndrome of right shoulder (principal)
CPT/HCPCS: 20610; 99214

== ENCOUNTER → 2025-04-30 10:39 | Outpatient (BNVA) | payer OTHER, SELFPAY | PROVIDERS: PCP Family Medicine; Visit Provider Orthopaedic Surgery | DX: Z71.2 Person consulting for explanation of examination or test findings (principal); M75.41 Impingement syndrome of right shoulder | CPT/HCPCS: 20610; J0665; J1100; J2003 ==

== ENCOUNTER 2025-08-11 06:11 | Outpatient (REF) | payer OTHER, SELFPAY ==
--- NOTE | ~2025-08-11 | FL_ITS ---
EXAMINATION: FL GUIDANCE ONLY HISTORY: M19.019 - Primary osteoarthritis, unspecified shoulder COMPARISON: Correlation is made with plain films of the right shoulder dated 12/29/2024. TECHNIQUE: Fluoroscopy time: Less than 1 minute. Cumulative Dose: 0.266 mGy. DAP: 0.64286 mGym2 Images: 1. FINDINGS: A single fluoroscopic spot film of the right shoulder demonstrates a needle in the region of the AC joint. FL/FL guidance in treatment room IMPRESSION: Fluoroscopy during procedure. Please see procedure report for additional information. Electronically signed by: Jordan Mcintyre MD 08/11/2025 09:37 AM EDT
--- OUTSIDE RECORDS SUMMARY | 2025-08-11 06:13 | XMS_ITS | Encounter Summary ---
Author Organization [facility] Address [address] [place] [address] Phone Care Team Providers Care Recruitment Advertising Manager Name Role Phone Unknown, Unknown Primary Care Provider Sudha Richards MD Primary Care Provider [phone] Sudha Kilpatrick MD Primary Care Provider + [phone] Sudha Kilpatrick MD Primary Care Provider +[phone]- [phone] Reason for Referral * MRI/CAT Scan - Closed Specialty Diagnoses / Procedures Referred By Contac t Referred To Contact Radiology Diagnoses LLQ pain Procedures CT Abdomen/Pelvis CHG CT SCAN,ABDOMENT AND PELVIS,W CONTRAST Tommy Neely PA Phone: tel: fax: mailto:[email or web address] Referral ID Status Reason Start Date Expiration Date Visits Re quested Visits Authorized [id number] Closed 03/29/2022 09/25/2022 1 1 Encounter Details Date Type Department Care Team (Late st Contact Info) Description 03/29/2022 Transcribe Orders Virtual Department [address] [place] [address] Tommy Neely PA [address] [place] [phone] [email or web address] LLQ pain (Primary Dx) Social History Tobacco Use Types Packs/Day Years Used Date Smoking Tobacco: Never Assessed Sex and Gender Information Value Date Recorded Sex Assigned at Not on file Legal Sex Male 9:13 PM EDT Gender Identity Not on file Sexual Orientation Not on file documented as of this encounter Plan of Treatment Not on file documented as of this encounter Results * CT ABDOMEN/PELVIS WITH CONTRAST (04/04/2022 1:54 PM EDT) Anatomical Region Laterality Modality Abdomen, Pelvis Computed Tomogra phy 04/04/2022 3:45 PM EDT Impressions 04/04/2022 3:49 PM EDT 1.No evidence of acute intra-abdominal abnormality. 2.Mild hepatic steatosis. 3.Mild diverticulosis. Narrative 04/04/2022 3:[address] ABDOMEN/PELVIS WITH CONTRAST TECHNIQUE: Multidetector-row CT of the abdomen and pelvis was performed after administration of intravenous contrast using tailored dose modulation techniques. Images were reconstructed in the axial, coronal, and sagittal planes. COMPARISON: None FINDINGS: Lower Chest: Normal. No consolidation or pleural effusions. Liver: Mild hepatic steatosis. No focal lesions. Biliary: Normal. No biliary ductal dilatation. Spleen: Normal. No splenomegaly or focal lesions. Pancreas: Normal. No masses or ductal dilatation. Adrenal Glands: Normal. No nodules. Kidneys/Ureters: Normal. No solid masses, stones, or hydronephrosis. Bowel: No evidence of bowel obstruction. Few colonic diverticula are noted without evidence of acute diverticulitis Peritoneum/Retroperitoneum: Normal. No masses, pneumoperitoneum, or fluid. Lymph Nodes: Normal. No lymphadenopathy. Pelvic Organs/Bladder: Normal. No mass. Vessels: Normal. No abdominal aortic aneurysm. Bones/Soft Tissues: Normal. No destructive osseous lesions. Procedure Note Luigi Acosta MD - 04/04/2022 CT ABDOMEN/PELVIS WITH CONTRAST TECHNIQUE: Multidetector-row CT of the abdomen and pelvis was performedafter administration of intravenous contrast using tailored dosemodulation techniques. Images were reconstructed in the axial, coronal,and sagittal planes. COMPARISON: None FINDINGS: Lower Chest: Normal. No consolidation or pleural effusions. Liver: Mild hepatic steatosis. No focal lesions. Biliary: Normal. No biliary ductal dilatation. Spleen: Normal. No splenomegaly or focal lesions. Pancreas: Normal. No masses or ductal dilatation. Adrenal Glands: Normal. No nodules. Kidneys/Ureters: Normal. No solid masses, stones, or hydronephrosis. Bowel: No evidence of bowel obstruction. Few colonic diverticula are notedwithout evidence of acute diverticulitis Peritoneum/Retroperitoneum: Normal. No masses, pneumoperitoneum, orfluid. Lymph Nodes: Normal. No lymphadenopathy. Pelvic Organs/Bladder: Normal. No mass. Vessels: Normal. No abdominal aortic aneurysm. Bones/Soft Tissues: Normal. No destructive osseous lesions. IMPRESSION: 1.No evidence of acute intra-abdominal abnormality. 2.Mild hepatic steatosis. 3.Mild diverticulosis. Tommy SRIVASTAVA IMG CT ABD/PELVIS Final Res ult documented in this encounter Visit Diagnoses Diagnosis LLQ pain- Primary Abdominal pain, left lower quadrant LLQ pain Abdominal pain, left lower quadrant documented in this encounter Care Teams Recruitment Advertising Manager Relationship Specialty Start Date End Date Unknown, Unknown, MD PCP - General 03/29/22 05/31/23 Sudha Kilpatrick MD [email or web address] PCP - General Family Medicine 06/01/23 11/26/23 Sudha Kilpatrick MD PCP - General Family Medicine 11/27/23 03/17/25 Sudha Kilpatrick MD [address] [place] [address] [email or web address] PCP - General Family Medicine 03/18/25 documented as of this encounter Additional Source Comments The information contained in this document represents components of the legal health record. It is not the complete legal health record.[facility]
--- OUTSIDE RECORDS SUMMARY | 2025-08-11 06:13 | XMS_ITS | Encounter Summary ---
Author Organization [facility] Address [address] [place] [address] Phone Care Team Providers Care Fraternity Adviser Name Role Phone Sudha Kilpatrick MD Primary Care Provider + [phone] Sudha Kilpatrick MD Primary Care Provider + [phone] Reason for Referral * MRI/CAT Scan - Closed Specialty Diagnoses / Procedures Referred By Willard phoenix Referred To Contact Radiology Diagnoses Paresthesia of skin Procedures MRI Brain CHG MRI BRAIN COMBO Sudha Kilpatrick MD [address] [place] [address] Phone: tel: fax: [email or web address] Referral ID Status Reason Start Date Expiration Date Visits Re quested Visits Authorized [id number] Closed 03/09/2025 05/08/2025 1 1 Encounter Details Date Type Department Care Team (Latest Contact Info) Description 03/09/2025 Transcribe Orders Virtual Department [address] [place] [address] Sudha Kilpatrick MD [address] [place], [place] [phone] [email or web address] Paresthesia of skin (Primary Dx) Social History Tobacco Use Types Packs/Day Years Used Date Smoking Tobacco: Never Smokeless Tobacco: Never Alcohol Use Standard Drinks/Week Comments Yes 1 (1 standard drink = 0.6 oz pur e alcohol) Education Answer Date Recorded Are you interested in more education? Not on bailey e 03/02/2023 Are you concerned about learning? Not on file 03/02/2023 No 03/02/2023 No 03/02/2023 Digital Access Answer Date Recorded No 04/02/2023 No 04/02/2023 Reliable internet access at home? Not on file 04/02/2023 Device with a working camera? Not on file Sex and Gender Information Value Date Recorded Sex Assigned at Not on file Legal Sex Male 9:13 PM EDT Gender Identity Not on file Sexual Orientation Not on file documented as of this encounter Plan of Treatment Not on file documented as of this encounter Results * MRI BRAIN (MS) WITH AND WITHOUT CONTRAST (03/18/2025 5:26 PM EDT) Anatomical Region Laterality Modality Head Magnetic Resonan ce 03/23/2025 10:2 4 AM EDT Impressions 03/23/2025 10:29 AM EDT No evidence of acute infarction, hemorrhage, intracranial mass, or hydrocephalus. Narrative 03/23/2025 10:29 AM EDT MRI BRAIN (MS) WITH AND WITHOUT CONTRAST Referring clinician's provided indication for this examination in [facility]: Outside Radiology Order; facial paresthesia TECHNIQUE: MRI BRAIN (MS) WITH AND WITHOUT CONTRAST COMPARISON: None available. FINDINGS: Brain Parenchyma: No evidence of acute infarct, mass lesion, or hemorrhage. No abnormal parenchymal enhancement. Ventricular System and Extra-Axial Spaces: No evidence of midline shift or hydrocephalus. Extracranial Structures: Arterial flow voids in the skull base are present. Orbits are unremarkable. Trace scattered mucosal thickening is seen throughout the paranasal sinuses. Mucus retention cyst is seen in the left sphenoid sinus. The mastoids are clear. Procedure Note Maya Brady MD - 03/23/2025 MRI BRAIN (MS) WITH AND WITHOUT CONTRAST Referring clinician's provided indication for this examination in [facility]:Outside Radiology Order; facial paresthesia TECHNIQUE: MRI BRAIN (MS) WITH AND WITHOUT CONTRAST COMPARISON: None available. FINDINGS: Brain Parenchyma: No evidence of acute infarct, mass lesion, orhemorrhage. No abnormal parenchymal enhancement. Ventricular System and Extra-Axial Spaces: No evidence of midline shift orhydrocephalus. Extracranial Structures: Arterial flow voids in the skull base arepresent. Orbits are unremarkable. Trace scattered mucosal thickening isseen throughout the paranasal sinuses. Mucus retention cyst is seen in theleft sphenoid sinus. The mastoids are clear. IMPRESSION: No evidence of acute infarction, hemorrhage, intracranial mass, orhydrocephalus. Sudha Kilpatrick MD IMG MR HEAD/NECK Final Resul t documented in this encounter Visit Diagnoses Diagnosis Paresthesia of skin- Primary Paresthesia of skin documented in this encounter Care Teams Fraternity Adviser Relationship Specialty Start Date End Date Sudha Kilpatrick MD PCP - General Family Medicine 11/27/23 03/17/25 Sudha Kilpatrick MD [address] [place] [address] PCP - General Family Medicine 03/18/25 documented as of this encounter Additional Source Comments The information contained in this document represents components of the legal health record. It is not the complete legal health record.[facility]
--- OUTSIDE RECORDS SUMMARY | 2025-08-11 06:13 | XMS_ITS | Encounter Summary ---
Author Organization [facility] Address [address] [place] [address] Phone Care Team Providers Care Superintendent Maintenance Airports Name Role Phone Sudha Kilpatrick MD Primary Care Provider [phone] Sudha Kilpatrick MD Primary Care Provider [phone] Sudha Kilpatrick MD Primary Care Provider [phone]- [phone] Encounter Details Date Type Department Care Team (Late st Contact Info) Description 06/04/2023 Procedure Pass [facility], [address] [address] Social History Tobacco Use Types Packs/Day Years Used Date Smoking Tobacco: Never Smokeless Tobacco: Never Education Answer Date Recorded Are you interested [...] on file documented as of this encounter Visit Diagnoses Not on filedocumented in this encounter Care Teams Superintendent Maintenance Airports Relationship Specialty Start Date End Date Sudha Kilpatrick MD PCP - General Family Medicine 06/01/23 11/26/23 Sudha Kilpatrick MD PCP - General Family Medicine 11/27/23 03/17/25 Sudha Kilpatrick MD [address] [place] [address] PCP - General Family Medicine 03/18/25 documented as of this encounter Additional Source Comments The information contained in this document represents components of the legal health record. It is not the complete legal health record.[facility]
--- OUTSIDE RECORDS SUMMARY | 2025-08-11 06:13 | XMS_ITS | Encounter Summary ---
Author Organization [facility] Address [address] [place] [address] Phone Care Team Providers Care Supervisor Lump Room Name Role Phone Unknown, Unknown Primary Care Provider Sudha Richards MD Primary Care Provider [phone] Sudha Kilpatrick MD Primary Care Provider [phone] Sudha Kilpatrick MD Primary Care Provider [phone]- [phone] Encounter Details Date Type Department Care Team (Late st Contact Info) Description 03/29/2022 Procedure Pass [facility], Ct Scan - [address] [address] Social History Tobacco Use Types Packs/Day Years [...] on filedocumented in this encounter Care Teams Supervisor Lump Room Relationship Specialty Start Date End Date Unknown, Unknown, PCP - General 03/29/22 05/31/23 Sudha Kilpatrick MD [email or web address] PCP - General Family Medicine 06/01/23 11/26/23 Sudha Kilpatrick MD PCP - General Family Medicine 11/27/23 03/17/25 Sudha Kilpatrick MD [address] [place] [address] PCP - General Family Medicine 03/18/25 documented as of this encounter Additional Source Comments The information contained in this document represents components of the legal health record. It is not the complete legal health record.[facility]
--- OUTSIDE RECORDS SUMMARY | 2025-08-11 06:13 | XMS_ITS | Encounter Summary ---
Author Organization [facility] Address [address] [place] [address] Phone Care Team Providers Care Lathe Operator Contact Lens Name Role Phone Sudha Kilpatrick MD Primary Care Provider + [phone] Sudha Kilpatrick MD Primary Care Provider + [phone] Encounter Details Date Type Department Care Team (Late st Contact Info) Description 03/09/2025 Procedure Pass [facility], [address] [address] Social History Tobacco Use Types Packs/Day Years [...] on file documented as of this encounter Last Filed Vital Signs Vital Sign Reading Time Taken Comments Blood Pressure - - Pulse - - Temperature - - Respiratory Rate - - Oxygen Saturation - - Inhaled Oxygen Concentration - - Weight 92.5 kg (204 lb) 03/12/2025 10:51 AM EDT Height 177.8 cm (5' 10 ) 03/12/2025 10:51 AM EDT Body Mass Index 29.27 03/12/2025 10:51 AM EDT documented in this encounter Plan of Treatment Not on file documented as of this encounter Visit Diagnoses Not on filedocumented in this encounter Care Teams Lathe Operator Contact Lens Relationship Specialty Start Date End Date Sudha Kilpatrick MD PCP - General Family Medicine 11/27/23 03/17/25 Sudha Kilpatrick MD [address] [place] [address] PCP - General Family Medicine 03/18/25 documented as of this encounter Additional Source Comments The information contained in this document represents components of the legal health record. It is not the complete legal health record.[facility]
--- OUTSIDE RECORDS SUMMARY | 2025-08-11 06:13 | XMS_ITS | Encounter Summary ---
Author Organization [facility] Address [address] [place] [address] Phone Care Team Providers Care Scout Sniper Name Role Phone Sudha Kilpatrick MD Primary Care Provider [phone] Sudha Kilpatrick MD Primary Care Provider [phone] Sudha Kilpatrick MD Primary Care Provider [phone] Encounter Details Date Type Department Care Team (Late st Contact Info) Description 10/24/2023 Procedure Pass [place] Admitting Dept - Virtual Department [address] [place] [address] Social History Tobacco Use Types Packs/Day Years [...] on filedocumented in this encounter Care Teams Scout Sniper Relationship Specialty Start Date End Date Sudha Kilpatrick MD [email or web address] PCP - General Family Medicine 06/01/23 11/26/23 Sudha Kilpatrick MD PCP - General Family Medicine 11/27/23 03/17/25 Sudha Kilpatrick MD [address] [place] [address] [email or web address] PCP - General Family Medicine 03/18/25 documented as of this encounter Additional Source Comments The information contained in this document represents components of the legal health record. It is not the complete legal health record.[facility]
--- OUTSIDE RECORDS SUMMARY | 2025-08-11 06:13 | XMS_ITS | Encounter Summary ---
Author Organization [facility] Address [address] [place] [address] Phone Care Team Providers Care Block Breaker Operator Name Role Phone Sudha Kilpatrick MD Primary Care Provider + [phone] Sudha Kilpatrick MD Primary Care Provider + [phone] Encounter Details Date Type Department Care Team (Late st Contact Info) Description 03/24/2024 Procedure Pass [place] Admitting Dept - Virtual Department [address] [place] [address] Social History Tobacco Use Types Packs/Day Years [...] on filedocumented in this encounter Care Teams Block Breaker Operator Relationship Specialty Start Date End Date Sudha Kilpatrick MD [email or web address] PCP - General Family Medicine 11/27/23 03/17/25 Sudha Kilpatrick MD [address] [place] [address] [email or web address] PCP - General Family Medicine 03/18/25 documented as of this encounter Additional Source Comments The information contained in this document represents components of the legal health record. It is not the complete legal health record.[facility]
--- OUTSIDE RECORDS SUMMARY | 2025-08-11 06:13 | XMS_ITS | Encounter Summary ---
Author Organization [facility] Address [address] [place] [address] Phone Care Team Providers Care Visual Developer Name Role Phone Sudha Kilpatrick MD Primary Care Provider + [phone] Sudha Kilpatrick MD Primary Care Provider + [phone] Encounter Details Date Type Department Care Team (Late st Contact Info) Description 12/10/2023 Procedure Pass [place] Admitting Dept - Virtual Department [address] [place] [address] Social History Tobacco Use Types Packs/Day Years [...] on filedocumented in this encounter Care Teams Visual Developer Relationship Specialty Start Date End Date Sudha Kilpatrick MD PCP - General Family Medicine 11/27/23 03/17/25 Sudha Kilpatrick MD [address] [place] [address] PCP - General Family Medicine 03/18/25 documented as of this encounter Additional Source Comments The information contained in this document represents components of the legal health record. It is not the complete legal health record.[facility]
--- OUTSIDE RECORDS SUMMARY | 2025-08-11 06:13 | XMS_ITS | Clinical Summary ---
Author Organization [facility] Address [address] [place] [address] Care Team Providers Care Financial Institution President Name Role Phone Ed Moran MD Primary Care Provider [phone] Allergies No known active allergies Medications No known medications Active Problems No known active problems Social History Tobacco Use Types Packs/Day Years Used Date Smoking Tobacco: Never Assessed Sex and Gender Information Value Date Recorded Sex Assigned at Not on file Legal Sex Male 1:14 PM EDT Gender Identity Not on file Sexual Orientation Not on file Last Filed Vital Signs Vital Sign Reading Time Taken Comments Blood Pressure 137/86 05/24/2021 10:11 AM EDT Pulse 86 05/24/2021 10:11 AM EDT Temperature 36.4 C (97.6 F) 05/24/2021 10:11 AM EDT Respiratory Rate - - Oxygen Saturation 98% [...] - 19+ 3-dose series) 2005 Influenza Vaccine 06/05/2025 COVID-19 Vaccine (2023-2 5 season) 2025 HPV Vaccines (No Doses Required) Completed Pneumococcal Vaccine: Pediat curt (0-5 Years) and At-Risk Patients (6 to 49 Years) Aged Out No longer eligible b ased on patient's age to complete this topic Insurance [facility] Care Teams Financial Institution President Relationship Specialty Start Date End Date Ed Moran MD [address] [place] [address] PCP - General Family Medicine 01/26/21
--- OUTSIDE RECORDS SUMMARY | 2025-08-11 06:13 | XMS_ITS | Clinical Summary ---
Author Organization [facility] Address [address] [place] [phone] Phone Care Team Providers Care Director Of Procurement Name Role Phone Sudha Kilpatrick MD Primary Care Provider [phone] Allergies No known active allergies Social History Tobacco Use Types Packs/Day Years Used Date Smoking Tobacco: Never Smokeless Tobacco: Never Sex and Gender Information Value Date Recorded Sex Assigned at Not on file Legal Sex Male 8:38 PM EST Gender Identity Not on file Sexual Orientation Not on file Obstetrics History Last Filed Vital Signs Vital Sign Reading Time Taken Comments Blood Pressure 126/73 02/17/2025 2:44 AM EDT Pulse 88 02/17/2025 2:44 AM EDT Temperature 36.9 C (98.5 F) 02/17/2025 2:44 AM EDT Respiratory Rate 16 02/17/2025 2:44 AM EDT Oxygen Saturation 100% 02/17/2025 2:44 AM EDT Inhaled Oxygen Concentration - - Weight 95.3 kg (210 lb) 02/16/2025 5:58 PM EDT Height 177.8 cm (5' 10 ) 02/16/2025 5:58 PM EDT Body Mass Index 30.13 02/16/2025 5:58 PM EDT Plan of Treatment Health Maintenance Due Date Last Done Comments Cholesterol Screening (Lipid Panel) 10/07/2022 HIV Screening 10/07/2022 Hepatitis C Screening 10/07/2022 Social Influencers of Health Screening 10/07/2022 Depression Screening 11/05/2024 HPV Vaccines (2 - 3-dose SCDM series) 12/21/2024 11/23/2024 Influenza Vaccine (#1) 2025 , 08/27/2023, 07/21/2022, Additional history exists DTaP,Tdap,and Td Vaccines (3 - Td or Tdap) 09/24/2029 09/24/2019, 12/16/2015 RSV Immunization Adult Patients (1 - 1-dose 75+ series) 2061 Hepatitis B Vaccines Completed 09/04/2023, 07/30/20 COVID-19 Vaccine Completed 11/15/2024, , 07/21/2022, Additional history exists HIB Vaccines Aged Out No longer eligi [...] age to complete this topic Meningococcal B Vaccine Aged Out No l onger eligible based on patient's age to complete this topic Pneumococcal Vaccine: Pediatrics (0 to 5 Years) and At-Risk Patients (6 to 49 Years) Aged Out No longer eligible based on patient's age to complete this topic RSV Immunization Patients Under 20 months Aged Out No longer eligible based on patient's age to complete this topic Varicella Vaccines Aged Out No longer eligible based on patient's age to complete this topic Insurance [facility] [id number] Care Teams Director Of Procurement Relationship Specialty Start Date End Date [place] [address] PCP - General Family Medicine 02/17/25
--- OUTSIDE RECORDS SUMMARY | 2025-08-11 06:13 | XMS_ITS | Clinical Summary ---
Author Organization [facility] Address [address] [place] [address] Phone Care Team Providers Care Front Office Java Developer Name Role Phone Sudha Kilpatrick MD Primary Care Provider Allergies Active Allergy Reactions Criticality Noted Date Comments Carrot Throat Tightness Medium 07/17/2023 Grass Pollen Sneezing Low 06/04/2023 Medications tadalafiL (CIALIS, ADCIRCA) 20 MG tablet Take 20 mg by mouth as needed. 3 Active acetaminophen (TYLENOL) 325 mg capsule Take 325 mg by mouth. 2 Active ibuprofen (ADVIL,MOTRIN) 200 MG tablet Take 2 tablets (400 mg total) by mouth every 6 (six) hours as needed for pain (specific location in comments). 3 Active senna (SENOKOT) 8.6 mg tablet Take 1 tablet by mouth 2 (two) times a day. 3 Active Additional Information Patient not taking.Reported on 04/10/2024 docusate sodium (COLACE) 100 MG capsule Take 1 capsule (100 mg total) by mouth 3 (three) times a day as needed. 4 Active Additional Information Patient not taking.Reported on 04/10/2024 gabapentin (NEURONTIN) 300 MG capsule Take 1 capsule (300 mg total) by mouth 2 (two) times a day. 40 capsule 1 4 Active Additional Information Patient not taking.Reported on 04/10/2024 cyclobenzaprine (FLEXERIL) 10 MG tablet take 1 tablet by mouth three times a day for 30 days 4 Active LORazepam (ATIVAN) 1 MG tablet Take 1 tablet (1 mg total) by mouth every 6 (six) hours as needed for anxiety. 12 tablet 4 Active lidocaine (LMX 5) 5 % Crea Apply topically every 4 (four) hours as needed. 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 Gout 07/16/2023 Social History Tobacco Use Types Packs/Day Years Used Date Smoking Tobacco: Never Smokeless Tobacco: Never Tobacco Cessation:Counseling Given: Not Answered Alcohol Use Standard Drinks/Week Comments Yes 1 [...] Sign Reading Time Taken Comments Blood Pressure 134/68 04/10/2024 2:39 PM EDT Pulse 90 04/10/2024 2:39 PM EDT Temperature 36.7 C (98.1 F) 04/10/2024 2:39 PM EDT Respiratory Rate 14 03/24/2024 11:30 AM EDT Oxygen Saturation 98% 04/10/2024 2:39 PM EDT Inhaled Oxygen Concentration - - Weight 92.5 kg (204 lb) 03/12/2025 10:51 AM EDT Height 177.8 cm (5' 10 ) 03/12/2025 10:51 AM EDT Body Mass Index 29.27 03/12/2025 10:51 AM EDT Plan of Treatment Health Maintenance Due Date Last Done Comments LIPID PANEL 1986 DEPRESSION SCREENING 1998 HEPATITIS C SCREENING 2004 HIV ONE-TIME SCREENING (18-65 YEARS) 2004 SCREENING FOR DIABETES 2021 INFLUENZA VACCINE (#1) 2025 , 07/21/2022, 08/28/2021, Additional history exists COVID-19 VACCINE (2024- season) 2025 07/30/2023, 07/21/2022, 08/29/2021, Additional history exists Adult Td,Tdap Booster 12/16/2025 12/16/2015 SMOKING STATUS SCREENING (Once After 26 Yrs) Completed 04/10/2024 HEPATITIS A VACCINES Aged Out No long er eligible based on patient's age to complete this topic HIB VACCINES Aged Out No longer eligi ble based on patient's age to complete this topic MENINGOCOCCAL VACCINES (ACWY) Aged Out No longer eligible based on patient's age to complete this topic MENINGOCOCCAL VACCINES (B) Aged Out N o longer eligible based on patient's age to complete this topic PNEUMOCOCCAL VACCINES (0-49 years) Aged Out No longer eligible based on patient's age to complete this topic Medical Devices Not on file [facility] HMO Advance Directives For more information, please contact: [phone] (9AM - 5PM Marjorie/[facility], Sunday-Sunday) * Full Code (Latest Code Status on File) Date Activated Date Inactivated Comments 03/24/2024 9:03 AM Question Answer Comments Code Status Confirmed With: Patient * Full Code Date Activated Date Inactivated Comments 12/10/2023 11:28 AM 03/24/2024 9:03 AM Question Answer Comments Code Status Confirmed With: Patient * Full Code Date Activated Date Inactivated Comments 10/24/2023 6:24 AM 12/10/2023 11:28 AM Question Answer Comments Code Status Confirmed With: Patient Care Teams Front Office Java Developer Relationship Specialty Start Date End Date Sudha Kilpatrick MD [address] [place] [id number] PCP - General Family Medicine 03/18/25 Additional Source Comments The information contained in this document represents components of the legal health record. It is not the complete legal health record.[facility]
== END 2025-08-11 06:12 | disposition home or self-care (01) ==
LOC: CF 06:11
PROVIDERS: Visit Provider Anesthesiology
DX: M19.011 Primary osteoarthritis, right shoulder (principal)
CPT/HCPCS: 20605; J2795; J3301

== ENCOUNTER 2025-08-11 07:07 | Outpatient (AMB) | payer OTHER, SELFPAY ==
[2025-08-11 07:16] VITALS: BP 107/69; PULSE 70; RESP 16; O2SAT 98
--- NOTE | 2025-08-11 07:16 | MHC.OFFVIS ---
Vital Signs 08/11/25 07:16 08/11/25 07:34 BP 107/69 125/68 Blood Pressure Location Lt brachial Lt brachial Position Sitting Sitting Respiration 16 16 Pulse 70 74 Pulse Source Pulse Oximeter Pulse Oximeter Pulse Oximetry (%) 98 99 Oxygen Delivery Method Room Air Room Air Intake Visit Reasons: Right AC Joint Steroid Injection Wastewater Process Engineer Required: No Allergies No Known Allergies (No Known Allergies*) Allergy (Verified 08/11/25 07:17) Medication List - Last Reconciled 08/11/25 by Kecia Lazcano LPN cyclobenzaprine mg PO 3XD gabapentin 300 mg PO TID gabapentin mg PO 3XD tadalafil 20 mg PO DAILY PRN PFSH Medical History (Updated 08/11/25 @ 07:36 by Christopher Meek MD) Bilateral plantar fasciitis Cervical radiculopathy Chronic neck pain Cystic acne Anorectal fistula Anxiety Obesity Gout Surgical History (Updated 03/10/25 @ 11:37 by Janina Hearn RN) Hx of wisdom tooth extraction Social History Alcohol intake: current Alcohol intake frequency: holidays/special occasions only Patient Tobacco Use Status: Never used Tobacco Current occupational status: employed 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 Informed consent was explained to the patient, risks and benefits explained. He came to the operating room and was positioned supine on the operating table. The right shoulder area was prepped with ChloraPrep. C-arm was brought over the operating field and picture of the right AC joint was demonstrated on the screen. The 1 cc of triamcinolone 40 mg was obtained and mixed with 2 mLs f ropivacaine 0.5%, the solution was injected into the right AC joint under fluoroscopy guidance. Patient tolerated the procedure well. The needle was removed Band-Aid was applied. Orders: Orders FL guidance in treatment room Today M19.019 - Primary osteoarthritis, unspecified shoulder Coding Level of Care Code Procedure Only Diagnoses AC joint arthropathy M19.019 Right shoulder pain M25.511
[2025-08-11 07:34] VITALS: BP 125/68; PULSE 74; RESP 16; O2SAT 99
== END 2025-08-11 07:35 | disposition home or self-care (01) ==
LOC: HO.PMCPRC 07:07
PROVIDERS: PCP Family Medicine; Visit Provider Anesthesiology
DX: M19.011 Primary osteoarthritis, right shoulder (principal); M25.511 Pain in right shoulder
CPT/HCPCS: 20605; 77002

== ENCOUNTER 2025-09-24 11:31 | Outpatient (AMB) | payer OTHER, SELFPAY ==
[2025-09-24 11:36] VITALS: BP 127/81; PULSE 73; RESP 16; O2SAT 99; BMI 29.8
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
--- OUTSIDE RECORDS SUMMARY | 2025-09-24 17:49 | XMS_ITS | Encounter Summary ---
Author Organization [facility] Address [address] [place] [address] Phone Care Team Providers Care School Plant Consultant Name Role Phone Unknown, Unknown Primary Care Provider Sudha Richards MD Primary Care Provider [phone] Sudha Kilpatrick MD Primary Care Provider [phone] Sudha Kilpatrick MD Primary Care Provider [phone] Reason for Referral * MRI/CAT Scan - Closed Specialty Diagnoses / Procedures Referred By Contac t Referred To Contact Radiology Diagnoses LLQ pain Procedures CT Abdomen/Pelvis CHG CT SCAN,ABDOMENT AND PELVIS,W CONTRAST Tommy Neely PA Phone: tel: fax: [email or web address] Referral ID Status Reason Start Date Expiration Date Visits Re quested Visits Authorized [id number] Closed 03/29/2022 09/25/2022 1 1 Encounter Details Date Type Department Care Team (Late st Contact Info) Description 03/29/2022 Transcribe Orders Virtual Department [address] [place] [address] Tommy Neely PA [address] [place] [phone] m LLQ pain (Primary Dx) Social History [...] quadrant documented in this encounter Care Teams School Plant Consultant Relationship Specialty Start Date End Date Unknown, Unknown, MD PCP - General 03/29/22 05/31/23 Sudha Kilpatrick MD [email or web address] PCP - General Family Medicine 06/01/23 11/26/23 Sudha Kilpatrick MD PCP - General Family Medicine 11/27/23 03/17/25 Sudha Kilpatrick MD [address] [place] [id number] [email or web address] PCP - General Family Medicine 03/18/25 documented as of this encounter Additional Source Comments The information contained in this document represents components of the legal health record. It is not the complete legal health record.[facility]
--- OUTSIDE RECORDS SUMMARY | 2025-09-24 17:49 | XMS_ITS | Clinical Summary ---
Author Organization [facility] Address [address] [place] [address] Phone Care Team Providers Care Human Factors Advisor Lead Name Role Phone Sudha Kilpatrick MD Primary [...] topic Medical Devices Not on file Insurance [facility] H[facility] Advance Directives For more information, please contact: [phone] (9AM - 5PM Marjorie/[facility], Sunday-Sunday) * Full Code (Latest Code Status [...] Code Status Confirmed With: Patient Care Teams Human Factors Advisor Lead Relationship Specialty Start Date End Date Sudha Kilpatrick MD [address] [place] [id number] PCP - General Family Medicine 03/18/25 Additional Source Comments The information contained in this document represents components of the legal health record. It is not the complete legal health record.[facility]
--- OUTSIDE RECORDS SUMMARY | 2025-09-24 17:49 | XMS_ITS | Clinical Summary ---
Author Organization [facility] Address [address] [place] [phone] Phone Care Team Providers Care Client Service Executive Name Role Phone Sudha Kilpatrick MD Primary Care Provider [phone] Allergies No known active allergies Social History [...] (2 - 3-dose SCDM series) 12/21/2024 11/23/2024 COVID-19 Vaccine ( season) 2025 11/15/2024, 07/30/2023, 07/21/2022, Additional history exists Influenza Vaccine (#1) 2025 , 08/27/2023, 07/21/2022, Additional history exists DTaP,Tdap,and Td Vaccines (3 - Td or Tdap) 09/24/2029 09/24/2019, 12/16/2015 RSV Immunization Adult Patients (1 - 1-dose 75+ series) 2061 Hepatitis B Vaccines Completed 09/04/2023, 07/30/20 HIB Vaccines Aged Out No longer eligi [...] patient's age to complete this topic Insurance [facility] [place] [id number] Care Teams Client Service Executive Relationship Specialty Start Date End Date Sudha Kilpatrick MD [address] [place], [place] [phone] PCP - General Family Medicine 02/17/25
--- OUTSIDE RECORDS SUMMARY | 2025-09-24 17:49 | XMS_ITS | Encounter Summary ---
Author Organization [facility] Address [address] [place] [address] Phone Care Team Providers Care Donor Recruiter Name Role Phone Sudha Kilpatrick MD Primary Care Provider [phone] Sudha Kilpatrick MD Primary Care Provider [phone] Sudha Kilpatrick MD Primary Care Provider [phone] Encounter Details Date Type Department Care Team (Late st Contact Info) Description 06/04/2023 Procedure Pass [facility], [address] [address] Social History Tobacco Use Types Packs/Day Years [...] on filedocumented in this encounter Care Teams Donor Recruiter Relationship Specialty Start Date End Date Sudha Kilpatrick MD PCP - General Family Medicine 06/01/23 11/26/23 Sudha Kilpatrick MD PCP - General Family Medicine 11/27/23 03/17/25 Sudha Kilpatrick MD [address] [place] [phone] PCP - General Family Medicine 03/18/25 documented as of this encounter Additional Source Comments The information contained in this document represents components of the legal health record. It is not the complete legal health record.[facility]
--- OUTSIDE RECORDS SUMMARY | 2025-09-24 17:49 | XMS_ITS | Encounter Summary ---
Author Organization [facility] Address [address] [place] [phone] Phone Care Team Providers Care Sander Setter Name Role Phone Sudha Kilpatrick MD Primary Care Provider [phone] Sudha Kilpatrick MD Primary Care Provider [phone] Sudha Kilpatrick MD Primary Care Provider [phone] Encounter Details Date Type Department Care Team (Late st Contact Info) Description 10/24/2023 Procedure Pass OR Admitting Dept - Virtual Department [address] [place] [address] Social History Tobacco Use Types Packs/Day Years [...] on filedocumented in this encounter Care Teams Sander Setter Relationship Specialty Start Date End Date Sudha Kilpatrick MD [email or web address] PCP - General Family Medicine 06/01/23 11/26/23 Sudha Kilpatrick MD PCP - General Family Medicine 11/27/23 03/17/25 Sudha Kilpatrick MD [address] [place] [address] [email or web address] PCP - General Family Medicine 03/18/25 documented as of this encounter Additional Source Comments The information contained in this document represents components of the legal health record. It is not the complete legal health record.[facility]
--- OUTSIDE RECORDS SUMMARY | 2025-09-24 17:49 | XMS_ITS | Encounter Summary ---
Author Organization [facility] Address [address] [place] [phone] Phone Care Team Providers Care Charm Filter Operator Helper Name Role Phone Sudha Kilpatrick MD Primary Care Provider + [phone] Sudha Kilpatrick MD Primary Care Provider + [phone] Encounter Details Date Type Department Care Team (Late st Contact Info) Description 03/09/2025 Procedure Pass [facility], [address] [address] Social History Tobacco Use Types Packs/Day Years [...] on filedocumented in this encounter Care Teams Charm Filter Operator Helper Relationship Specialty Start Date End Date Sudha Kilpatrick MD PCP - General Family Medicine 11/27/23 03/17/25 Sudha Kilpatrick MD [address] [place] [address] PCP - General Family Medicine 03/18/25 documented as of this encounter Additional Source Comments The information contained in this document represents components of the legal health record. It is not the complete legal health record.[facility]
--- OUTSIDE RECORDS SUMMARY | 2025-09-24 17:49 | XMS_ITS | Encounter Summary ---
Author Organization [facility] Address [address] [place] [address] Phone Care Team Providers Care Probation Manager Name Role Phone Sudha Kilpatrick MD Primary Care Provider + [phone] Sudha Kilpatrick MD Primary Care Provider + [phone] Encounter Details Date Type Department Care Team (Late st Contact Info) Description 12/10/2023 Procedure Pass OR Admitting Dept - Virtual Department [address] [place] [address] Social History Tobacco Use Types Packs/Day Years [...] on filedocumented in this encounter Care Teams Probation Manager Relationship Specialty Start Date End Date Sudha Kilpatrick MD PCP - General Family Medicine 11/27/23 03/17/25 Sudha Kilpatrick MD [address] [place] [address] PCP - General Family Medicine 03/18/25 documented as of this encounter Additional Source Comments The information contained in this document represents components of the legal health record. It is not the complete legal health record.[facility]
--- OUTSIDE RECORDS SUMMARY | 2025-09-24 17:49 | XMS_ITS | Encounter Summary ---
Author Organization [facility] Address [address] [place] [phone] Phone Care Team Providers Care Financial Systems Analyst Name Role Phone Unknown, Unknown Primary Care Provider Sudha Richards MD Primary Care Provider [phone] Sudha Kilpatrick MD Primary Care Provider [phone] Sudha Kilpatrick MD Primary Care Provider [phone] Encounter Details Date Type Department Care Team (Late st Contact Info) Description 03/29/2022 Procedure Pass [facility], Ct Scan - [address] [address] Social History Tobacco Use Types Packs/Day Years [...] on filedocumented in this encounter Care Teams Financial Systems Analyst Relationship Specialty Start Date End Date Unknown, Unknown, PCP - General 03/29/22 05/31/23 Sudha Kilpatrick MD [email or web address] PCP - General Family Medicine 06/01/23 11/26/23 Sudha Kilpatrick MD PCP - General Family Medicine 11/27/23 03/17/25 Sudha Kilpatrick MD [address] [place] [address] [email or web address] PCP - General Family Medicine 03/18/25 documented as of this encounter Additional Source Comments The information contained in this document represents components of the legal health record. It is not the complete legal health record.[facility]
--- OUTSIDE RECORDS SUMMARY | 2025-09-24 17:49 | XMS_ITS | Clinical Summary ---
Author Organization [facility] Address [address] [place] [address] Care Team Providers Care Laser Beam Machine Operator Name Role Phone Ed Moran MD Primary Care Provider [phone] Allergies No known active allergies Medications No [...] patient's age to complete this topic Insurance [facility] Care Teams Laser Beam Machine Operator Relationship Specialty Start Date End Date Ed Moran MD [address] [place] [address] PCP - General Family Medicine 01/26/21
--- OUTSIDE RECORDS SUMMARY | 2025-09-24 17:49 | XMS_ITS | Encounter Summary ---
Author Organization [facility] Address [address] [place] [address] Phone Care Team Providers Care Plastic Design Applier Name Role Phone Sudha Kilpatrick MD Primary Care Provider + [phone] Sudha Kilpatrick MD Primary Care Provider + [phone] Reason for Referral * MRI/CAT Scan - Closed Specialty Diagnoses / Procedures Referred By Willard phoenix Referred To Contact Radiology Diagnoses Paresthesia of skin Procedures MRI Brain CHG MRI BRAIN COMBO Sudha Kilpatrick MD [address] [place] [address] Phone: tel: fax: [email or web address] Referral ID Status Reason Start Date Expiration Date Visits Re quested Visits Authorized [id number] Closed 03/09/2025 05/08/2025 1 1 Encounter Details Date Type Department Care Team (Latest Contact Info) Description 03/09/2025 Transcribe Orders Virtual Department [address] [place] [address] Sudha Kilpatrick MD [address] [place], [place] [phone] [email or web address] Paresthesia of skin (Primary Dx) Social [...] clinician's provided indication for this examination in [facility]: Outside Radiology Order; facial paresthesia TECHNIQUE: MRI [...] clinician's provided indication for this examination in [facility]:Outside Radiology Order; facial paresthesia TECHNIQUE: MRI BRAIN [...] skin documented in this encounter Care Teams Plastic Design Applier Relationship Specialty Start Date End Date Sudha Kilpatrick MD PCP - General Family Medicine 11/27/23 03/17/25 Sudha Kilpatrick MD [address] [place] [address] PCP - General Family Medicine 03/18/25 documented as of this encounter Additional Source Comments The information contained in this document represents components of the legal health record. It is not the complete legal health record.[facility]
--- OUTSIDE RECORDS SUMMARY | 2025-09-24 17:49 | XMS_ITS | Encounter Summary ---
Author Organization [facility] Address [address] [place] [address] Phone Care Team Providers Care Binding Cutter Name Role Phone Sudha Kilpatrick MD Primary Care Provider + [phone] Sudha Kilpatrick MD Primary Care Provider + [phone] Encounter Details Date Type Department Care Team (Late st Contact Info) Description 03/24/2024 Procedure Pass [place] Admitting Dept - Virtual Department [address] [place] [address] Social History Tobacco Use Types Packs/Day Years [...] on filedocumented in this encounter Care Teams Binding Cutter Relationship Specialty Start Date End Date Sudha Kilpatrick MD PCP - General Family Medicine 11/27/23 03/17/25 Sudha Kilpatrick MD [address] [place] [phone] PCP - General Family Medicine 03/18/25 documented as of this encounter Additional Source Comments The information contained in this document represents components of the legal health record. It is not the complete legal health record.[facility]
== END 2025-09-24 11:57 | disposition home or self-care (01) ==
LOC: HO.PMC 11:31
PROVIDERS: PCP Family Medicine; Visit Provider Anesthesiology
DX: M47.812 Spondylosis without myelopathy or radiculopathy, cervical region (principal); M47.22 Other spondylosis with radiculopathy, cervical region
CPT/HCPCS: 99213